=== PATIENT | male | born 1995 | race Caucasian/White ===

== ENCOUNTER 2022-08-03 00:31 | Emergency (ER) | payer MEDICAID ==
[2022-08-03] MEDS ORDERED: Lidocaine 1% with EPINEPHrine 1:100,000 10 ML MDV ONE (00:40)
[2022-08-03] MEDS ORDERED: Bacitracin Oint 1 GM U/D Packet ONE (00:44)
[2022-08-03] MEDS ORDERED: Lidocaine 1% with EPINEPHrine 1:100,000 50 ML MDV INFILT ONE (00:56)
[2022-08-03] MEDS ORDERED: Bacitracin Oint 1 GM U/D Packet TOP ONE (00:56)
== END 2022-08-03 01:01 | disposition home or self-care (01) ==
LOC: JP.ED 00:31
DX: S61.211A Laceration without foreign body of left index finger without damage to nail, initial encounter (principal); W26.8XXA Contact with other sharp object(s), not elsewhere classified, initial encounter
CPT/HCPCS: 99282